=== PATIENT | female | born 1980 | race Hispanic/Latino ===

== ENCOUNTER 2017-04-13 15:27 | Emergency (ER) | payer BC ==
[2017-04-13] MEDS ORDERED: diphenhydrAMINE HCl 50 MG/ML 1 ML VIAL ONE (17:01)
[2017-04-13] MEDS ORDERED: Metoclopramide HCl 10 MG/2 ML VIAL ONE (17:01)
== END 2017-04-13 18:41 | disposition home or self-care (01) ==
LOC: ERS 15:27
DX: R51 Headache (principal); D64.9 Anemia, unspecified; E03.9 Hypothyroidism, unspecified; Z79.899 Other long term (current) drug therapy
CPT/HCPCS: 84703; 96361; 96374; 96375; J1200; J2765